=== PATIENT | female | born 1960 | race Caucasian/White ===

== ENCOUNTER → 2019-11-14 16:41 | Outpatient (BNVA) | payer MEDICARE, MEDICAID, SELFPAY | PROVIDERS: Family Provider Family Medicine; PCP Family Medicine; Visit Provider Family Medicine | DX: I10 Essential (primary) hypertension (principal); E11.9 Type 2 diabetes mellitus without complications; K21.9 Gastro-esophageal reflux disease without esophagitis; F41.9 Anxiety disorder, unspecified; T78.40XA Allergy, unspecified, initial encounter; Z87.892 Personal history of anaphylaxis | CPT/HCPCS: 80053; 80061; 83036 ==

== ENCOUNTER 2021-10-03 07:55 | Outpatient (CLI) | payer MEDICARE, MEDICAID, SELFPAY ==
--- NOTE | 2021-10-03 08:02 | FL_ITS ---
WS: [id number] Upper GI and small bowel follow-through or 01/15/2022. HISTORY: Vomiting TECHNIQUE: The patient in the upright position swallowing of barium was evaluated from the hypopharynx to the li gament of [place]. Following examination of the upper GI tract additional barium meal was ingested and multiple images of the small bowel obtained from the ligament of [place]itz into the colon. Upper GI: No abnormality of the swallowing was identified. Normal motility of the esophagus from the mid cervical region to the gastroesophageal junction. There was a small sliding hiatal hernia without significant Schatzki ring. The fundus body and antrum of the stomach demonstrated normal fold pattern. The stomach was not signi ficantly dilated. The stomach empties rather slowly. The pylorus duodenal bulb and duodenal sweep were within normal limits. Small bowel follow-through: Once the barium exited the stomach there was a fairly rapid progression into the colon. There is no dilatation of the small bowel. The mucosal pattern in the jejunum and ileum were unremarkable. Prominent ileocecal valve region. Also noted is a very prominent liver. Moderate amount of barium within the stomach after an hour of ingestion. FL/FL upperGI air smallbowel ser* IMPRESSION: Stomach was not dilated however it emptied slowly and moderate amount of barium remained in the stomach and hour after ingestion. The prominence in the ileocecal valve could be lipomatous infiltration, however in view of the significant weight loss presumed secondary to the chronic vomit ing correlation with occult GI bleeding should be made. The liver is enlarged. Most common cause is fatty infiltration of the liver, es pecially in a patient with diabetes.
== END 2021-10-03 07:56 | disposition home or self-care (01) ==
LOC: RAD 07:56
PROVIDERS: Family Provider Family Medicine; PCP Family Medicine; Visit Provider Surgery
DX: R11.2 Nausea with vomiting, unspecified (principal); R16.0 Hepatomegaly, not elsewhere classified
CPT/HCPCS: 74246; 74248; Q9963